=== PATIENT | male | born 1940 | race Caucasian/White ===

== ENCOUNTER → 2019-05-30 | Outpatient (CLI) | payer MEDICARE | LOC: LAB 10:13 | DX: R39.15 Urgency of urination (principal); Z85.46 Personal history of malignant neoplasm of prostate ==

== ENCOUNTER 2019-06-06 11:10 | Emergency (ER) | payer MEDICARE ==
[~2019-06-06] VITALS: Ht 177.8 cm; Wt 82.7 kg
[2019-06-06] MEDS ORDERED: INCRUSE EL62.5 MCG/A IH (11:25)
[2019-06-06] MEDS ORDERED: PROAIR HFA0.09 MG/AC IH (11:26)
[2019-06-06] MEDS ORDERED: ZOCOR40 M1 PO (11:27)
[2019-06-06] MEDS ORDERED: ALDACTONE25 M1 PO (11:27)
[2019-06-06] MEDS ORDERED: COLACE100 M1 PO (11:27)
[2019-06-06] MEDS ORDERED: FLOMAX0.4 MG PO (11:28)
[2019-06-06] MEDS ORDERED: CLOPIDOGREL PO (11:28)
[2019-06-06] MEDS ORDERED: ASPIRIN 81M81 MG/TA2 PO (11:29)
[2019-06-06] MEDS ORDERED: SYMBICORT1 AE3 IH (11:29)
[2019-06-06] MEDS ORDERED: MULTIVITAMIN1 SGL PO (11:30)
[2019-06-06] MEDS ORDERED: COENZYME Q10100 M1 PO (11:30)
[2019-06-06 11:35] LABS: HEMATOCRIT 35.1 % (42.0-52.0); HEMOGLOBIN 11.5 g/dL (13.5-18.0); MEAN CELL VOLUME 94 fl (78-100); MEAN CORPUSCULAR HEMOGLOBIN 31 pg (27-31); MEAN CORPUSCULAR HGB CONC 33 g/dL (33-37); MEAN PLATELET VOLUME 8.8 fl (7.4-10.4); PLATELET COUNT 253 K/mm3 (130-400); RED BLOOD COUNT 3.73 M/mm3 (4.20-5.60); RED CELL DISTRIBUTION WIDTH 14.3 % (11.5-14.5)
[2019-06-06 11:56] LABS: BAND 6 % (0-10); LYMPHOCYTE 6 % (20-51); MONOCYTE 3 % (3-10); NEUTROPHILS 84 % (42-75); WHITE BLOOD COUNT 28.6 K/mm3 (4.8-10.8)
[2019-06-06 12:08] LABS: ALBUMIN 3.8 g/dL (3.4-4.8); POTASSIUM 4.4 mmol/L (3.5-5.1)
[2019-06-06 12:09] LABS: CALCIUM 8.9 mg/dL (8.3-10.5)
[2019-06-06 12:11] LABS: TOTAL PROTEIN 7.5 g/dL (6.2-8.1)
[2019-06-06 14:29] LABS: URINE COLOR DARK YELLOW
[2019-06-06 14:30] LABS: URINE APPEARANCE CLEAR; URINE BILIRUBIN NEGATIVE (NEGATIVE); URINE BLOOD NEGATIVE (NEGATIVE); URINE GLUCOSE NEGATIVE (NEGATIVE); URINE KETONE NEGATIVE (NEGATIVE); URINE LEUKOCYTE ESTERASE NEGATIVE (NEGATIVE); URINE MUCUS PRESENT (NOT PRESENT); URINE NITRATE NEGATIVE (NEGATIVE); URINE PROTEIN(semi-quant) 1+ mg/dL (NEGATIVE); URINE UROBILINOGEN NORMAL (NORMAL)
[2019-06-06 15:52] LABS: HEMATOCRIT 31.4 % (42.0-52.0); HEMOGLOBIN 10.2 g/dL (13.5-18.0); MEAN CELL VOLUME 94 fl (78-100); MEAN CORPUSCULAR HEMOGLOBIN 31 pg (27-31); MEAN CORPUSCULAR HGB CONC 33 g/dL (33-37); MEAN PLATELET VOLUME 8.9 fl (7.4-10.4); PLATELET COUNT 223 K/mm3 (130-400); RED BLOOD COUNT 3.33 M/mm3 (4.20-5.60); RED CELL DISTRIBUTION WIDTH 14.3 % (11.5-14.5)
[2019-06-06 15:55] LABS: ALBUMIN 3.4 g/dL (3.4-4.8)
[2019-06-06 15:56] LABS: POTASSIUM 4.8 mmol/L (3.5-5.1)
[2019-06-06 15:57] LABS: CALCIUM 8.1 mg/dL (8.3-10.5)
[2019-06-06 15:58] LABS: TOTAL PROTEIN 6.7 g/dL (6.2-8.1)
[2019-06-06 16:00] LABS: TOTAL BILIRUBIN 0.6 mg/dL (0.2-1.2)
[2019-06-06 16:07] LABS: WHITE BLOOD COUNT 26.2 K/mm3 (4.8-10.8)
[2019-06-06 16:27] LABS: BAND 1 % (0-10); LYMPHOCYTE 1 % (20-51); MONOCYTE 2 % (3-10); NEUTROPHILS 96 % (42-75)
[2019-06-06 17:00] VITALS: BP 123/58
== END 2019-06-06 17:00 | disposition home or self-care (01) ==
LOC: ED 11:10
PROVIDERS: Nurse Practitioner; Nurse Practitioner Primary Care
DX: L03.115 Cellulitis of right lower limb (principal); I10 Essential (primary) hypertension; J44.9 Chronic obstructive pulmonary disease, unspecified; I73.9 Peripheral vascular disease, unspecified; Z86.73 Personal history of transient ischemic attack (TIA), and cerebral infarction without residual deficits; Z98.890 Other specified postprocedural states; Z79.02 Long term (current) use of antithrombotics/antiplatelets; Z85.46 Personal history of malignant neoplasm of prostate
CPT/HCPCS: A4216; J0696; J7030